=== PATIENT | female | born 1980 | race American Indian/Alaskan Native ===

== ENCOUNTER 2017-09-03 14:05 | Emergency (ER) | payer OTHER ==
--- NOTE | 2017-09-03 20:48 | Emergency Department Report ---
ED Lower Extremity HPI - General Chief Complaint: Extremity Problem,Nontraumatic Stated Complaint: bilateral leg pain Time Seen by Provider: 09/03/17 20:12 Source: patient Mode of arrival: Ambulatory Limitations: No Limitations - History of Present Illness Initial Comments: This is a 37-year-old female nontoxic, well nourished in appearance, no acute signs of distress presents to the ED with c/o of chronic intermittent bilateral knee pains 7 months. Patient stated pain only occurrence during winter but has stated several times there is no pain. Patient currently in the ED denies any pain. Patient stated she does not or did not follow-up with a primary care doctor due to pain being intermittent and has subsided currently. Patient denies any trauma to the region. Denies any joint swelling, joint redness, fever, chills, nausea, vomiting, chest pain, short of breath, numbness or tingling. Denies any allergies or past medical history. Denies any recent travels, low chloride, recent hospital stays. Denies any calf pain or calf tenderness. MD Complaint: knee injury -: month(s) Injury: Knee: Right, Left Severity: mild Severity scale (0 -10): 8 Improves With: nothing Worsens With: nothing Associated Symptoms: ambulatory. denies: snap/pop sensation, swelling, numbness , tingling, unable to bear weight, able to partially bear weight - Related Data Previous Rx's Medication Instructions Recorded Last Taken Type Ibuprofen [Motrin] 600 mg PO Q8H PRN #30 tablet 09/03/17 Unknown Rx Allergies Allergy/AdvReac Type Severity Reaction Status Date / Time No Known Allergies Allergy Unverified 09/03/17 14:28 ED Review of Systems ROS: Stated complaint: bilateral leg pain Other details as noted in HPI Constitutional: denies: chills, fever Eyes: denies: eye pain, eye discharge, vision change ENT: denies: ear pain, throat pain Respiratory: denies: cough, shortness of breath, wheezing Cardiovascular: denies: chest pain, palpitations Endocrine: no symptoms reported Gastrointestinal: denies: abdominal pain, nausea, diarrhea Genitourinary: denies: urgency, dysuria, discharge Musculoskeletal: arthralgia. denies: back pain, joint swelling Skin: denies: rash, lesions Neurological: denies: headache, weakness, paresthesias Psychiatric: denies: anxiety, depression Hematological/Lymphatic: denies: easy bleeding, easy bruising ED Past Medical Hx - Social History Smoking Status: Current Every Day Smoker Substance Use Type: Alcohol - Medications Home Medications: Home Medications Medication Instructions Recorded Confirmed Last Taken Type Ibuprofen [Motrin] 600 mg PO Q8H PRN #30 tablet 09/03/17 Unknown Rx ED Physical Exam - General Limitations: No Limitations General appearance: alert, in no apparent distress - Head Head exam: Present: atraumatic, normocephalic - Eye Eye exam: Present: normal appearance - ENT ENT exam: Present: normal exam, normal orophraynx, mucous membranes moist, TM's normal bilaterally, normal external ear exam - Neck Neck exam: Present: normal inspection, full ROM. Absent: tenderness, meningismus, lymphadenopathy, thyromegaly - Respiratory Respiratory exam: Present: normal lung sounds bilaterally. Absent: respiratory distress, wheezes, rales, rhonchi, stridor, chest wall tenderness, accessory muscle use, decreased breath sounds, prolonged expiratory - Cardiovascular Cardiovascular Exam: Present: regular rate, normal rhythm, normal heart sounds. Absent: irregular rhythm, systolic murmur, diastolic murmur, rubs, gallop - GI/Abdominal GI/Abdominal exam: Present: soft, normal bowel sounds. Absent: distended, tenderness, guarding, rebound, rigid, diminished bowel sounds - Extremities Exam Extremities exam: Present: normal inspection, full ROM, normal capillary refill. Absent: tenderness, pedal edema, joint swelling, calf tenderness - Expanded Lower Extremity Exam Left Hip exam: Present: normal inspection (bilateral exam), full ROM, external rotation, internal rotation, pelvic stability. Absent: tenderness, swelling, abrasion, laceration, ecchymosis, deformity, crepidus, dislocation, erythema, shortening Upper Leg exam: Present: normal inspection (bilateral exam), full ROM. Absent: tenderness, swelling, abrasion, laceration, ecchymosis, deformity, crepidus, dislocation, erythema Knee exam: Present: normal inspection (bilateral exam), full ROM, full knee extension. Absent: tenderness, swelling, abrasion, laceration, ecchymosis, deformity, crepidus, dislocation, erythema, effusion, pain w/ pronation/ supination, posterior draw sign, pain/laxity with valgus, pain/laxity with varus Lower Leg exam: Present: normal inspection (bilateral exam), full ROM. Absent: tenderness, swelling, abrasion, laceration, ecchymosis, deformity, crepidus, dislocation, erythema, palpable cord, Lisa's sign Ankle exam: Present: normal inspection (bilateral exam), full ROM. Absent: tenderness, swelling, abrasion, laceration, ecchymosis, deformity, crepidus, dislocation, erythema, anterior draw sign Foot/Toe exam: Present: normal inspection (bilateral exam), full ROM. Absent: tenderness, swelling, abrasion, laceration, ecchymosis, deformity, crepidus, dislocation, erythema, amputation, puncture wound, foreign body, calcaneal tenderness, tenderness at base of 5th metatarsal, nail avulsion, subungual hematoma Neuro vascular tendon exam: Present: no vascular compromise (bilateral exam). Absent: pulse deficit, abnormal cap refill, motor deficit, sensory deficit, tendon deficit, extremity cold to touch, pallor, abnormal 2-point discrimination , decreased fine/light touch, foot drop, peroneal nerve deficit, significant pain with passive ROM of distal joint Gait: Positive: observed and normal - Back Exam Back exam: Present: normal inspection - Neurological Exam Neurological exam: Present: alert, oriented X3, CN II-XII intact, normal gait, reflexes normal - Psychiatric Psychiatric exam: Present: normal affect, normal mood - Skin Skin exam: Present: warm, dry, intact, normal color. Absent: rash ED Course Vital Signs 09/03/17 14:28 Temperature 98.4 F Pulse Rate 94 H Respiratory 16 Rate Blood Pressure 127/75 O2 Sat by Pulse 99 Oximetry - Reevaluation(s) Reevaluation #1: 09/03/17 20:46 Patient is speaking in full sentences with no signs of distress noted. ED Lower Extremity MDM - Medical Decision Making This is a 37-year-old female that presents with bilatearl knee pain. Patient is stable and was examined immediately. Currently the patient denies any pain. There is no signs or swelling, cellulitis noted. No joint redness or joint swelling. Not warm to touch. No calf pain or tenderness. Negative jefferson test. Patient was instructed Follow-up with a primary care doctor in 3-5 days or if symptoms worsen and continue return to emergency room as soon as possible. At time time of discharge, the patient does not seem toxic or ill in appearance. No acute signs of distress noted. Patient agrees to discharge treatment plan of care. No further questions noted by the patient. Critical care attestation.: If time is entered above; I have spent that time in minutes in the direct care of this critically ill patient, excluding procedure time. ED Disposition Clinical Impression: Bilateral knee pain Qualifiers: Chronicity: chronic Qualified Code(s): M25.561 - Pain in right knee; M25.562 - Pain in left knee; M25.562 - Pain in left knee; G89.29 - Other chronic pain; G89.29 - Other chronic pain Disposition: TO HOME OR SELFCARE Is pt being admited?: No Does the pt Need Aspirin: No Condition: Stable Instructions: Knee Pain (ED), Ibuprofen (By mouth) Additional Instructions: Follow-up with a primary care doctor in 3-5 days or if symptoms worsen and continue return to emergency room as soon as possible. Prescriptions: Ibuprofen [Motrin] 600 mg PO Q8H PRN #30 tablet PRN Reason: Pain Referrals: PRIMARY CARE, [Primary Care Provider] - 3-5 Days ANDREA HATFIELD MD [Staff Physician] - 3-5 Days MICKEY PINZON MD [Staff Physician] - 3-5 Days [facility] [Outside] - 3-5 Days [facility] [Outside] - 3-5 Days Forms: Work/School Release Form(ED)
[2017-09-04 05:37] VITALS: BP 129/78
== END 2017-09-03 21:09 | disposition home or self-care (01) ==
LOC: ED 14:05
DX: M25.561 Pain in right knee (principal); M25.562 Pain in left knee; F17.200 Nicotine dependence, unspecified, uncomplicated
CPT/HCPCS: 99282

== ENCOUNTER 2019-02-21 22:33 | Emergency (ER) | payer OTHER ==
[2019-02-21] MEDS ORDERED: TORADOL IM ONE (23:17)
--- NOTE | 2019-02-22 00:25 | Cat Scan Report ---
PROCEDURE: CT ABDOMEN PELVIS WO CON TECHNIQUE: Computerized axial tomography of the abdomen and pelvis was performed without intravenous contrast. This study is performed without intravascular contrast material and its sensitivity for ab dominal and pelvic pathology, including neoplasms, inflammation, abscess, free fluid, thrombosis, art erial dissection and infarction, is reduced compared with a contrast enhanced study. HISTORY: pain in back and flank COMPARISONS: None . FINDINGS: Lower Lung conway: No focal abnormalities seen. Upper Abdomen: The unenhanced images of the liver, gallbladder, the adrenal glands, the pancreas and spleen are unremarkable. Kidneys, Ureters and Urinary bladder: There are several small nonobstructing calculi in the lower tw o thirds of the right kidney measuring up to 3 mm. There is a nonobstructing calculus measuring appro ximately 3 mm in the midportion of the left kidney. There is also a nonobstructing 2 mm calculus in t he lower third of the left kidney. No hydronephrosis visualized in the left. No ureteral calculi are seen on the left. The right renal collecting system appears minimally distended. The proximal right u reter also appears to be minimally distended although no definite ureteral calculi are seen. I cannot exclude a recently passed stone. Urinary bladder is suboptimally visualized as it is only partially filled otherwise is unremarkable. Retroperitoneum: Abdominal aorta appears normal. Nonspecific subcentimeter lymph nodes are seen in the retroperitoneum. No pathologically enlarged ly mph nodes are identified. Bowel: Mild diverticulosis visualized left side of the colon without evidence of diverticulitis. The re is no evidence of bowel obstruction. There is no ascites or free intraperitoneal gas. Normal-appea ring appendix appears to be visualized in the right lower quadrant. Minimal umbilical hernia containi ng adipose tissue is visualized. No herniated loops of bowel are seen. Reproductive organs: Uterus and adnexa are unremarkable. A small amount of nonspecific free fluid ap pears to be visualized in the cul-de-sac. Other: No acute bone abnormalities are identified. IMPRESSION: Several small nonobstructing renal calculi visualized bilaterally. There is minimal dilatation of the right renal collecting system as described. I cannot exclude a recently passed stone. No definite ur eteral calculi are seen on the right or left. Mild colonic diverticulosis without evidence of diverticulitis. Small amount of nonspecific free fluid is seen in the cul-de-sac. Uterus and adnexa otherwise are unr emarkable. This document is electronically signed by Josse Haro MD., February 22 2019 12:23:37 AM ET
[2019-02-22 01:09] LABS: Amorphous Crystals,Urine Few; Bacteria,Urine 4+ /HPF (Negative); Bilirubin,Urine NEG (Negative); Blood,Urine LG (Negative); Color,Urine Yellow (Yellow); Urobilinogen,Urine < 2.0 mg/dL (<2.0)
[2019-02-22 01:35] LABS: Mucus,Urine 1+ /HPF; WBC,Urine > 182.0 /HPF (0.0-6.0)
--- NOTE | 2019-02-22 02:43 | Emergency Department Report ---
ED Abdominal Pain HPI - General Chief Complaint: Abdominal Pain Stated Complaint: BACK FLANK PAIN Source: patient Mode of arrival: Ambulatory Limitations: No Limitations - History of Present Illness Initial Comments: This is a 38-year-old -[place] female who presents to the emergency room with right flank pain for 2 days. Past medical history of asthma, COPD, anxiety, kidney stones, and frequent urinary tract infections. Patient also reports dysuria and urinary frequency. She denies nausea, vomiting, diarrhea, pelvic pain, and vaginal discharge. MD Complaint: flank pain (right) Onset/Timin -: days(s) Location: R flank Radiation: none Migration to: no migration Severity: mild Severity scale (0 -10): 3 Quality: sharp, burning Consistency: intermittent Improves With: medication Worsens With: nothing Associated Symptoms: dysuria. denies: nausea, vomiting, diarrhea, fever, chills, constipation, hematemesis, hematochezia, melena, hematuria, anorexia, syncope Treatments Prior to Arrival: NSAIDs - Related Data Home Medications Medication Instructions Recorded Confirmed Last Taken guaiFENesin DM [Robitussin Dm] 10 ml PO Q6HR 08/30/18 08/30/18 Unknown Previous Rx's Medication Instructions Recorded Last Taken Type Aspirin EC 81 mg PO QDAY #30 tablet. 09/04/18 Unknown Rx Montelukast [Singulair] 10 mg PO QPM #30 tablet 09/04/18 Unknown Rx ALBUTEROL Inhaler(NF) [VENTOLIN 1 puff IH QID PRN #1 inha 10/29/18 Unknown Rx Inhaler(NF)] ALBUTEROL NEB's [Proventil 0.083% 2.5 mg IH TID PRN #90 neb 10/29/18 Unknown Rx NEBS] Acetaminophen [Acetaminophen TAB] 650 mg PO Q4H PRN #30 tablet 10/29/18 Unknown Rx Budesonide/Formoterol Fumarate 10.2 gm IH DAILY #1 hfa.aer.ad 10/29/18 Unknown Rx [Symbicort 160-4.5 Mcg Inhaler] Cefuroxime Axetil [Ceftin] 500 mg PO Q12H 5 Days ml 10/29/18 Unknown Rx HYDROcodone/APAP 5-325 [[place] 1 each PO Q4H PRN #12 tablet 10/29/18 Unknown Rx 5-325 mg TAB] Lisinopril [Prinivil] 10 mg PO DAILY #30 tablet 10/29/18 Unknown Rx Metoprolol [Lopressor TAB] 50 mg PO BID #60 tablet 10/29/18 Unknown Rx Pravastatin [Pravachol] 20 mg PO QHS #30 tablet 10/29/18 Unknown Rx Tiotropium [place] [Spiriva] 18 mcg IH MAYTE #30 cap.w.dev 10/29/18 Unknown Rx methylPREDNISolone [Medrol Dose 1 dose PO DAILY #1 pack 10/29/18 Unknown Rx Jose C] Nitrofurantoin Ciales/M-Cryst 100 mg PO Q12HR #10 capsule 02/22/19 Unknown Rx [Macrobid CAP] Phenazopyridine [Pyridium] 200 mg PO TID #6 tab 02/22/19 Unknown Rx Allergies Allergy/AdvReac Type Severity Reaction Status Date / Time adhesive Allergy Itching Verified 08/30/18 09:34 Latex, Natural Rubber Allergy Itching Verified 10/29/18 12:38 ED Review of Systems ROS: Stated complaint: BACK FLANK PAIN Other details as noted in HPI Constitutional: denies: chills, fever Respiratory: denies: cough, shortness of breath, wheezing Cardiovascular: denies: chest pain, palpitations Gastrointestinal: denies: abdominal pain, nausea, diarrhea Genitourinary: dysuria. denies: urgency, discharge Musculoskeletal: back pain (right flank). denies: joint swelling, arthralgia Skin: denies: rash, lesions Neurological: denies: headache, weakness, paresthesias Psychiatric: denies: anxiety, depression ED Past Medical Hx - Past Medical History Previous Medical History?: Yes Hx Congestive Heart Failure: No Hx Diabetes: No Hx Asthma: Yes (2012) Hx COPD: Yes (2017) Hx HIV: No Additional medical history: anxiety. h/o kidney stones, 2009 - Surgical History Past Surgical History?: No - Social History Smoking Status: Current Every Day Smoker Substance Use Type: Alcohol - Medications Home Medications: Home Medications Medication Instructions Recorded Confirmed Last Taken Type guaiFENesin DM [Robitussin Dm] 10 ml PO Q6HR 18 08/30/18 Unknown History Aspirin EC 81 mg PO QDAY #30 tablet. 09/04/18 Unknown Rx Montelukast [Singulair] 10 mg PO QPM #30 tablet 09/04/18 Unknown Rx ALBUTEROL Inhaler(NF) [VENTOLIN 1 puff IH QID PRN #1 inha 10/29/18 Unknown Rx Inhaler(NF)] ALBUTEROL NEB's [Proventil 0.083% 2.5 mg IH TID PRN #90 neb 10/29/18 Unknown Rx NEBS] Acetaminophen [Acetaminophen TAB] 650 mg PO Q4H PRN #30 tablet 10/29/18 Unknown Rx Budesonide/Formoterol Fumarate 10.2 gm IH DAILY #1 hfa.aer.ad 10/29/18 Unknown Rx [Symbicort 160-4.5 Mcg Inhaler] Cefuroxime Axetil [Ceftin] 500 mg PO Q12H 5 Days ml 10/29/18 Unknown Rx HYDROcodone/APAP 5-325 [[place] 1 each PO Q4H PRN #12 tablet 10/29/18 Unknown Rx 5-325 mg TAB] Lisinopril [Prinivil] 10 mg PO DAILY #30 tablet 10/29/18 Unknown Rx Metoprolol [Lopressor TAB] 50 mg PO BID #60 tablet 10/29/18 Unknown Rx Pravastatin [Pravachol] 20 mg PO QHS #30 tablet 10/29/18 Unknown Rx Tiotropium [place] [Spiriva] 18 mcg IH MAYTE #30 cap.w.dev 10/29/18 Unknown Rx methylPREDNISolone [Medrol Dose 1 dose PO DAILY #1 pack 10/29/18 Unknown Rx Jose C] Nitrofurantoin Ciales/M-Cryst 100 mg PO Q12HR #10 capsule 02/22/19 Unknown Rx [Macrobid CAP] Phenazopyridine [Pyridium] 200 mg PO TID #6 tab 02/22/19 Unknown Rx ED Physical Exam - General Limitations: No Limitations General appearance: alert, in no apparent distress - Respiratory Respiratory exam: Present: normal lung sounds bilaterally. Absent: respiratory distress - Cardiovascular Cardiovascular Exam: Present: regular rate, normal rhythm. Absent: systolic murmur, diastolic murmur, rubs, gallop - GI/Abdominal GI/Abdominal exam: Present: soft, normal bowel sounds. Absent: distended, tenderness, guarding, rebound, rigid - Back Exam Back exam: Present: full ROM, CVA tenderness (R). Absent: CVA tenderness (L), rash noted - Neurological Exam Neurological exam: Present: alert, oriented X3 - Psychiatric Psychiatric exam: Present: normal affect, normal mood - Skin Skin exam: Present: warm, dry, intact, normal color. Absent: rash ED Course Vital Signs 02/21/19 02/21/19 02/21/19 22:37 23:08 23:24 Temperature 98.6 F 98.6 F Pulse Rate 158 H 149 H Respiratory 18 20 18 Rate Blood Pressure 160/110 160/110 Blood Pressure [Right] O2 Sat by Pulse 100 100 Oximetry 02/21/19 02/22/19 23:54 03:00 Temperature Pulse Rate 85 Respiratory 18 18 Rate Blood Pressure Blood Pressure 109/70 [Right] O2 Sat by Pulse 100 Oximetry ED Medical Decision Making - Lab Data Lab Results 02/21/19 Range/Units Unknown Urine Color Yellow (Yellow) Urine Turbidity Cloudy (Clear) Urine pH 6.0 (5.0-7.0) Ur Specific [place] 1.006 (1.003-1.030) Urine Protein 100 mg/dl (Negative) mg/dL Urine Glucose (UA) Neg (Negative) mg/dL Urine Ketones Neg (Negative) mg/dL Urine Blood Lg (Negative) Urine Nitrite Pos (Negative) Urine Bilirubin Neg (Negative) Urine Urobilinogen < 2.0 (<2.0) mg/dL Ur Leukocyte Esterase Lg (Negative) Urine WBC (Auto) > 182.0 H (0.0-6.0) /HPF Urine RBC (Auto) 9.0 (0.0-6.0) /HPF U Epithel Cells (Auto) 8.0 (0-13.0) /HPF Urine Bacteria (Auto) 4+ (Negative) /HPF Amorphous Crystals Few Urine Mucus 1+ /HPF - Medical Decision Making Patient was examined by me. Patient is in no acute distress. Obtained a urinalysis which was positive for acute cystitis. Patient also have CVA tenderness on the right. Start Macrobid and Pyridium for acute cystitis. Patient informed of results. Patient instructed to increase fluid intake. Take [id number] Tylenol or ibuprofen for pain. Plan discussed with patient to discharge home and treat outpatient. She agreed with the ER plan. Patient discharged home in stable condition. Follow up with PCP in 2-3 days. Critical care attestation.: If time is entered above; I have spent that time in minutes in the direct care of this critically ill patient, excluding procedure time. ED Disposition Clinical Impression: Right flank pain, Dysuria Acute cystitis Qualifiers: Hematuria presence: with hematuria Qualified Code(s): N30.01 - Acute cystitis with hematuria Disposition: TO HOME OR SELFCARE Is pt being admited?: No Does the pt Need Aspirin: No Condition: Stable Instructions: Urinary Tract Infection in Women (ED), Abdominal Pain (ED) Additional Instructions: Increase fluid intake to 1L to 2L daily. Complete full course of antibiotics as prescribed. Avoid drinking alcohol while taking antibiotics and for 24 hours after completion. Follow up with primary care provider in 2-3 days. Prescriptions: Nitrofurantoin Ciales/M-Cryst [Macrobid CAP] 100 mg PO Q12HR #10 capsule Phenazopyridine [Pyridium] 200 mg PO TID #6 tab Referrals: JENNIFER REYES MD [Primary Care Provider] - 3-5 Days [facility] [Outside] - 3-5 Days [facility] [Outside] - 3-5 Days [facility] [Outside] - 3-5 Days Forms: Work/School Release Form(ED) Time of Disposition: 02:54
[2019-02-22] MEDS ORDERED: CATAPRES PO ONE (02:55)
[2019-02-22 03:06] VITALS: BP 106/70
== END 2019-02-22 03:10 | disposition home or self-care (01) ==
LOC: ED 22:33
DX: N30.01 Acute cystitis with hematuria (principal); J44.9 Chronic obstructive pulmonary disease, unspecified; F41.9 Anxiety disorder, unspecified; F17.200 Nicotine dependence, unspecified, uncomplicated; Z79.899 Other long term (current) drug therapy; Z91.040 Latex allergy status; Z91.09 Other allergy status, other than to drugs and biological substances
CPT/HCPCS: 74176; 81001; 96372; 99284; J1885

== ENCOUNTER 2019-05-26 22:09 | Emergency (ER) | payer OTHER ==
--- NOTE | 2019-05-26 22:42 | Emergency Department Report ---
Blank Doc - Documentation Documentation: 38-year-old female that presents with bartholin cyst. This initial assessment/diagnostic orders/clinical plan/treatment(s) is/are subject to change based on patient's health status, clinical progression and re- assessment by fellow clinical providers in the ED. Further treatment and workup at subsequent clinical providers discretion. Patient/guardians urged not to elope from the ED as their condition may be serious if not clinically assessed and managed. Initial orders include: 1- Patient sent to [facility] for further evaluation and treatment
[2019-05-27] MEDS ORDERED: BACTRIM DS PO ONE (00:14)
[2019-05-27] MEDS ORDERED: XYLOCAINE 1% MPF 5 mL INFILTRATI ONE (00:14)
[2019-05-27] MEDS ORDERED: PERCOCET 5/325 PO ONE (00:14)
[2019-05-27] MEDS ORDERED: IBUPROFEN PO ONE (00:14)
--- NOTE | 2019-05-27 02:23 | Emergency Department Report ---
- General Chief Complaint: Skin/Abscess/Foreign Body Stated Complaint: CYSY ABOUT TO BURST Time Seen by Provider: 05/26/19 22:42 Source: patient Mode of arrival: Ambulatory Limitations: No Limitations - History of Present Illness Initial Comments: Patient is a 38-year-old -Al[place]ian female who presents to the ED with complaint of acute onset persistent severe painful swollen erythematous maculopapular fluctuant a rash on the left labia majora on the inner surface for the last 2 days. Patient states that the pain or swelling of worse in the last 12 hours. Patient denies fever, chills, nausea, vomiting, dizziness, headache, chest pain, shortness of breath or dysuria and urinary frequency and urgency. -: Sudden, days(s) (2) Location: genitals (left labial majora) 1 - Painful swollen erythematous fluctuant rash Place: home Patient Tetanus UTD: Yes Context: fall, other (Spontaneous) Associated Symptoms: none, pain. denies: loss of feeling/numbness, suspect foreign body present, unable to move injured part, weakness followed by dizziness, nausea/vomiting, fever Treatments Prior to Arrival: NSAIDS - Related Data Home Medications Medication Instructions Recorded Confirmed Last Taken guaiFENesin DM [Robitussin Dm] 10 ml PO Q6HR 08/30/18 08/30/18 Unknown Previous Rx's Medication Instructions Recorded Last Taken Type Aspirin EC [Halfprin EC] 81 mg PO QDAY #30 tablet. 09/04/18 Unknown Rx Montelukast [Singulair] 10 mg PO QPM #30 tablet 09/04/18 Unknown Rx ALBUTEROL Inhaler(NF) [VENTOLIN 1 puff IH QID PRN #1 inha 10/29/18 Unknown Rx Inhaler(NF)] ALBUTEROL NEB's [Proventil 0.083% 2.5 mg IH TID PRN #90 neb 10/29/18 Unknown Rx NEBS] Acetaminophen [Acetaminophen TAB] 650 mg PO Q4H PRN #30 tablet 10/29/18 Unknown Rx Budesonide/Formoterol Fumarate 10.2 gm IH DAILY #1 hfa.aer.ad 10/29/18 Unknown Rx [Symbicort 160-4.5 Mcg Inhaler] Cefuroxime Axetil [Ceftin] 500 mg PO Q12H 5 Days ml 10/29/18 Unknown Rx HYDROcodone/APAP 5-325 [[place] 1 each PO Q4H PRN #12 tablet 10/29/18 Unknown Rx 5-325 mg TAB] Lisinopril [Prinivil] 10 mg PO DAILY #30 tablet 10/29/18 Unknown Rx Metoprolol [Lopressor TAB] 50 mg PO BID #60 tablet 10/29/18 Unknown Rx Pravastatin [Pravachol] 20 mg PO QHS #30 tablet 10/29/18 Unknown Rx Tiotropium [place] [Spiriva] 18 mcg IH MAYTE #30 cap.w.dev 10/29/18 Unknown Rx methylPREDNISolone [Medrol Dose 1 dose PO DAILY #1 pack 10/29/18 Unknown Rx Jose C] Nitrofurantoin Pepin/M-Cryst 100 mg PO Q12HR #10 capsule 02/22/19 Unknown Rx [Macrobid CAP] Phenazopyridine [Pyridium] 200 mg PO TID #6 tab 02/22/19 Unknown Rx Acetaminophen/Codeine [Tylenol 1 tab PO Q6H PRN #12 tab 05/27/19 Unknown Rx /Codeine # 3 tab] Clindamycin [Clindamycin CAP] 300 mg PO Q8HR #60 capsule 05/27/19 Unknown Rx Ibuprofen [Motrin] 600 mg PO Q8H PRN #20 tablet 05/27/19 Unknown Rx Sulfamethoxazole/Trimethoprim 1 each PO Q12H #20 tablet 05/27/19 Unknown Rx [Bactrim DS TAB] Allergies Allergy/AdvReac Type Severity Reaction Status Date / Time adhesive Allergy Itching Verified 08/30/18 09:34 Latex, Natural Rubber Allergy Itching Verified 10/29/18 12:38 ED Review of Systems ROS: Stated complaint: CYSY ABOUT TO BURST Other details as noted in HPI Constitutional: denies: chills, fever Eyes: denies: eye pain, eye discharge, vision change ENT: denies: ear pain, throat pain Respiratory: denies: cough, shortness of breath, wheezing Cardiovascular: denies: chest pain, palpitations Endocrine: no symptoms reported Gastrointestinal: denies: abdominal pain, nausea, diarrhea Genitourinary: denies: urgency, dysuria, discharge Musculoskeletal: denies: back pain, joint swelling, arthralgia Skin: rash (swollen erythematous fluctuant painful rash on left labia majora), change in color. denies: lesions Neurological: denies: headache, weakness, paresthesias Psychiatric: denies: anxiety, depression Hematological/Lymphatic: denies: easy bleeding, easy bruising ED Past Medical Hx - Past Medical History Previous Medical History?: Yes Hx Hypertension: Yes Hx Congestive Heart Failure: No Hx Diabetes: No Hx Asthma: Yes (2012) Hx COPD: Yes (2018) Hx HIV: No Additional medical history: anxiety, SVT. h/o kidney stones, 2009 - Surgical History Past Surgical History?: Yes - Social History Smoking Status: Current Every Day Smoker Substance Use Type: None - Medications Home Medications: Home Medications Medication Instructions Recorded Confirmed Last Taken Type guaiFENesin DM [Robitussin Dm] 10 ml PO Q6HR 08/30/18 08/30/18 Unknown History Aspirin EC [Halfprin EC] 81 mg PO QDAY #30 tablet. 09/04/18 Unknown Rx Montelukast [Singulair] 10 mg PO QPM #30 tablet 09/04/18 Unknown Rx ALBUTEROL Inhaler(NF) [VENTOLIN 1 puff IH QID PRN #1 inha 10/29/18 Unknown Rx Inhaler(NF)] ALBUTEROL NEB's [Proventil 0.083% 2.5 mg IH TID PRN #90 neb 10/29/18 Unknown Rx NEBS] Acetaminophen [Acetaminophen TAB] 650 mg PO Q4H PRN #30 tablet 10/29/18 Unknown Rx Budesonide/Formoterol Fumarate 10.2 gm IH DAILY #1 hfa.aer.ad 10/29/18 Unknown Rx [Symbicort 160-4.5 Mcg Inhaler] Cefuroxime Axetil [Ceftin] 500 mg PO Q12H 5 Days ml 10/29/18 Unknown Rx HYDROcodone/APAP 5-325 [[place] 1 each PO Q4H PRN #12 tablet 10/29/18 Unknown Rx 5-325 mg TAB] Lisinopril [Prinivil] 10 mg PO DAILY #30 tablet 10/29/18 Unknown Rx Metoprolol [Lopressor TAB] 50 mg PO BID #60 tablet 10/29/18 Unknown Rx Pravastatin [Pravachol] 20 mg PO QHS #30 tablet 10/29/18 Unknown Rx Tiotropium [place] [Spiriva] 18 mcg IH MAYTE #30 cap.w.dev 10/29/18 Unknown Rx methylPREDNISolone [Medrol Dose 1 dose PO DAILY #1 pack 10/29/18 Unknown Rx Jose C] Nitrofurantoin Pepin/M-Cryst 100 mg PO Q12HR #10 capsule 02/22/19 Unknown Rx [Macrobid CAP] Phenazopyridine [Pyridium] 200 mg PO TID #6 tab 02/22/19 Unknown Rx Acetaminophen/Codeine [Tylenol 1 tab PO Q6H PRN #12 tab 05/27/19 Unknown Rx /Codeine # 3 tab] Clindamycin [Clindamycin CAP] 300 mg PO Q8HR #60 capsule 05/27/19 Unknown Rx Ibuprofen [Motrin] 600 mg PO Q8H PRN #20 tablet 05/27/19 Unknown Rx Sulfamethoxazole/Trimethoprim 1 each PO Q12H #20 tablet 05/27/19 Unknown Rx [Bactrim DS TAB] ED Physical Exam - General Limitations: No Limitations General appearance: alert, in no apparent distress - Head Head exam: Present: atraumatic, normocephalic, normal inspection - Eye Eye exam: Present: normal appearance, PERRL, EOMI Pupils: Present: normal accommodation - ENT ENT exam: Present: normal exam, normal orophraynx, mucous membranes moist, TM's normal bilaterally, normal external ear exam - Neck Neck exam: Present: normal inspection, full ROM - Respiratory Respiratory exam: Present: normal lung sounds bilaterally. Absent: respiratory distress, wheezes, rales, rhonchi, chest wall tenderness, accessory muscle use - Cardiovascular Cardiovascular Exam: Present: regular rate, normal rhythm, normal heart sounds. Absent: systolic murmur, diastolic murmur, rubs, gallop - GI/Abdominal GI/Abdominal exam: Present: soft, normal bowel sounds. Absent: tenderness, guarding, rebound, hypoactive bowel sounds, organomegaly - External exam: Present: normal external exam, erythema, swelling, other (Swollen severely tender erythematous fluctuant rash on the inner left labium majora) Speculum exam: Present: other (deferred) Bi-manual exam: Present: other (deferred) - Extremities Exam Extremities exam: Present: normal inspection, full ROM, normal capillary refill - Back Exam Back exam: Present: normal inspection, full ROM. Absent: CVA tenderness (L), muscle spasm, paraspinal tenderness - Neurological Exam Neurological exam: Present: alert, oriented X3, CN II-XII intact, normal gait, motor sensory deficit - Psychiatric Psychiatric exam: Present: normal affect, normal mood, anxious - Skin Skin exam: Present: warm, dry, intact, normal color, rash (erythematous swollen severely tender fluctuant rash on lefrt lamium majora), erythema ED Course Vital Signs 05/26/19 22:43 Temperature 98.3 F Pulse Rate 100 H Respiratory 16 Rate Blood Pressure 142/91 O2 Sat by Pulse 98 Oximetry - Reevaluation(s) Reevaluation #1: 05/27/19 02:30 This is a 38-year-old female who presented to the ED with left labium majora swollen rash with pain for 2 days. In the ED, patient is alert and oriented 3 and is not in distress with normal vital signs but appears to be in pain. Patient was treated for pain in the ED and also given initial oral antibiotic in the ED. The patient's fluctuant rash was cleaned thoroughly and anesthetized with lidocaine 1% solution and incised and drained per protocol. The wound was then dressed appropriately and patient discharged home on pain medications and antibiotics. Patient was advised to follow-up with her primary care physician in 5-7 days for reevaluation or return to the ED immediately if symptoms get worse. - I & D Left Vagina Type of Procedure: Simple Site: Left labium majora Blade Size: 11 I & D Procedure: betadine prep, sterile drapes applied, sterile dressing applied Progress: Patient tolerated procedure well. Patient was discharged home on pain medications and oral antibiotics and advised to follow-up with her primary care physician is 5-7 days for reevaluation. Patient was also advised to return to the ED immediately if the pain or swelling or other symptoms get worse. ED Medical Decision Making - Medical Decision Making This is a 38-year-old female who presented to the ED with left labium majora swollen rash with pain for 2 days. In the ED, patient is alert and oriented 3 and is not in distress with normal vital signs but appears to be in pain. Patient was treated for pain in the ED and also given initial oral antibiotic in the ED. The patient's fluctuant rash was cleaned thoroughly and anesthetized with lidocaine 1% solution and incised and drained per protocol. The wound was then dressed appropriately and patient discharged home on pain medications and antibiotics. Patient was advised to follow-up with her primary care physician in 5-7 days for reevaluation or return to the ED immediately if symptoms get worse. - Differential Diagnosis cellulitis; Folliculitis; abscess of left lamium majora Critical care attestation.: If time is entered above; I have spent that time in minutes in the direct care of this critically ill patient, excluding procedure time. ED Disposition Clinical Impression: Abscess of left genital labia, Cellulitis of labia majora, Acute folliculitis Disposition: TO HOME OR SELFCARE Is pt being admited?: No Does the pt Need Aspirin: No Condition: Stable Instructions: Cellulitis (ED), Abscess (ED) Additional Instructions: Take medications with food, drink plenty of fluids and follow up with your Primary care Physician in 5-7 days for reevaluation. Return to the ED immediately if symptoms get worse. Prescriptions: Sulfamethoxazole/Trimethoprim [Bactrim DS TAB] 1 each PO Q12H #20 tablet Clindamycin [Clindamycin CAP] 300 mg PO Q8HR #60 capsule Ibuprofen [Motrin] 600 mg PO Q8H PRN #20 tablet PRN Reason: Pain Acetaminophen/Codeine [Tylenol /Codeine # 3 tab] 1 tab PO Q6H PRN #12 tab PRN Reason: Pain , Severe (7-10) Referrals: PRIMARY CARE, [Primary Care Provider] - 3-5 Days Forms: Work/School Release Form(ED) Time of Disposition: 02:20 Print Language: MALTESE
[2019-05-27 02:42] VITALS: BP 128/80
== END 2019-05-27 02:45 | disposition home or self-care (01) ==
LOC: ED 22:09
DX: N76.4 Abscess of vulva (principal); N76.2 Acute vulvitis; L73.9 Follicular disorder, unspecified; I10 Essential (primary) hypertension; J44.9 Chronic obstructive pulmonary disease, unspecified; F41.9 Anxiety disorder, unspecified; F17.200 Nicotine dependence, unspecified, uncomplicated; Z87.442 Personal history of urinary calculi; Z79.82 Long term (current) use of aspirin; Z79.899 Other long term (current) drug therapy

== ENCOUNTER 2019-05-29 17:40 | Emergency (ER) | payer OTHER ==
[2019-05-29 17:47] VITALS: BP 125/82
--- NOTE | 2019-05-29 17:47 | Event Note ---
ED Screening Note Date of service: 05/29/19 Time: 17:43 ED Screening Note: This is a 38 y.o. F. that presents to the ER for packing removal from I&D wound to left labia. This initial assessment/diagnostic orders/clinical plan/treatment(s) is/are subject to change based on patients health status, clinical progression and re- assessment by fellow clinical providers in the ED. Further treatment and workup at subsequent clinical providers discretion. Patient/guardian urged not to elope from the ED as their condition may be serious if not clinically assessed and managed. Initial orders include:
--- NOTE | 2019-05-29 18:50 | Emergency Department Report ---
Chief Complaint: Laceration/Recheck/Suture Stated Complaint: FOLLOW UP Time Seen by Provider: 05/29/19 17:43 - Exam Vital Signs: Vital Signs 05/29/19 17:43 Temperature 98.3 F Pulse Rate 109 H Respiratory 18 Rate Blood Pressure 125/82 O2 Sat by Pulse 99 Oximetry MSE screening note: Focused history and physical exam performed. Due to findings the following was ordered: ED Disposition for MSE Condition: Stable
--- NOTE | 2019-05-29 20:03 | Emergency Department Report ---
Suture/Staple Removal - HPI Chief Complaint: Laceration/Recheck/Suture Stated Complaint: FOLLOW UP Time Seen by Provider: 05/29/19 17:43 When Sutures or Katerine Placed: 3 days ago Wound Location: left mons pubis ED Review of Systems ROS: Stated complaint: FOLLOW UP Other details as noted in HPI Comment: All other systems reviewed and negative ED Past Medical Hx - Past Medical History Hx Hypertension: Yes Hx Congestive Heart Failure: No Hx Diabetes: No Hx Asthma: Yes (2012) Hx COPD: Yes (2017) Hx HIV: No Additional medical history: anxiety, SVT. h/o kidney stones, 2009 - Surgical History Past Surgical History?: No Additional Surgical History: X2. LUNG SURGERY - Social History Smoking Status: Current Every Day Smoker Substance Use Type: Alcohol - Medications Home Medications: Home Medications Medication Instructions Recorded Confirmed Last Taken Type guaiFENesin DM [Robitussin Dm] 10 ml PO Q6HR 08/30/18 08/30/18 Unknown History Aspirin EC [Halfprin EC] 81 mg PO QDAY #30 tablet.dr 09/04/18 Unknown Rx Montelukast [Singulair] 10 mg PO QPM #30 tablet 09/04/18 Unknown Rx ALBUTEROL Inhaler(NF) [VENTOLIN 1 puff IH QID PRN #1 inha 10/29/18 Unknown Rx Inhaler(NF)] ALBUTEROL NEB's [Proventil 0.083% 2.5 mg IH TID PRN #90 neb 10/29/18 Unknown Rx NEBS] Acetaminophen [Acetaminophen TAB] 650 mg PO Q4H PRN #30 tablet 10/29/18 Unknown Rx Budesonide/Formoterol Fumarate 10.2 gm IH DAILY #1 hfa.aer.ad 10/29/18 Unknown Rx [Symbicort 160-4.5 Mcg Inhaler] Cefuroxime Axetil [Ceftin] 500 mg PO Q12H 5 Days ml 10/29/18 Unknown Rx HYDROcodone/APAP 5-325 [[place] 1 each PO Q4H PRN #12 tablet 10/29/18 Unknown Rx 5-325 mg TAB] Lisinopril [Prinivil] 10 mg PO DAILY #30 tablet 10/29/18 Unknown Rx Metoprolol [Lopressor TAB] 50 mg PO BID #60 tablet 10/29/18 Unknown Rx Pravastatin [Pravachol] 20 mg PO QHS #30 tablet 10/29/18 Unknown Rx Tiotropium [place] [Spiriva] 18 mcg IH MAYTE #30 cap.w.dev 10/29/18 Unknown Rx methylPREDNISolone [Medrol Dose 1 dose PO DAILY #1 pack 10/29/18 Unknown Rx Jose C] Nitrofurantoin [place]/M-Cryst 100 mg PO Q12HR #10 capsule 02/22/19 Unknown Rx [Macrobid CAP] Phenazopyridine [Pyridium] 200 mg PO TID #6 tab 02/22/19 Unknown Rx Acetaminophen/Codeine [Tylenol 1 tab PO Q6H PRN #12 tab 05/27/19 Unknown Rx /Codeine # 3 tab] Clindamycin [Clindamycin CAP] 300 mg PO Q8HR #60 capsule 05/27/19 Unknown Rx Ibuprofen [Motrin] 600 mg PO Q8H PRN #20 tablet 05/27/19 Unknown Rx Sulfamethoxazole/Trimethoprim 1 each PO Q12H #20 tablet 05/27/19 Unknown Rx [Bactrim DS TAB] Suture Removal Exam - Exam General: Vital signs noted. No distress. Alert and acting appropriately. Wound: Yes Tenderness, No Pathologic Erythema, No Drainage, No Pus, No Wound Dehiscence Other Systems: All other systems reviewed and are unremarkable. ED Course Vital Signs 05/29/19 17:43 Temperature 98.3 F Pulse Rate 109 H Respiratory 18 Rate Blood Pressure 125/82 O2 Sat by Pulse 99 Oximetry ED Recheck MDM - Medical Decision Making This is a 38-year-old female who presents for packing removal was placed 3 days ago. Patient states she is taking the medication as prescribed. Packing removed without any difficulty. Wound was flushed with 20 mL of normal saline. Vital signs are normal patient is in no acute distress. Discussed the patient to continue taking her medication as prescribed. Critical care attestation.: If time is entered above; I have spent that time in minutes in the direct care of this critically ill patient, excluding procedure time. ED Disposition Clinical Impression: Visit for wound check Disposition: [id number] TO HOME OR SELFCARE Is pt being admited?: No Does the pt Need Aspirin: No Condition: Stable Instructions: Acute Wound Care (ED) Additional Instructions: Make sure to follow up with the primary care physician as discussed. Take all your medications as you've been prescribed. If you have any worsening symptoms or develop new symptoms please return to ED immediately. Referrals: [facility] [Outside] - 3-5 Days [facility] [Outside] - 3-5 Days Forms: Work/School Release Form(ED) Time of Disposition: 19:59
== END 2019-05-29 20:37 | disposition home or self-care (01) ==
LOC: ED 17:40
DX: N76.4 Abscess of vulva (principal); I10 Essential (primary) hypertension; J44.9 Chronic obstructive pulmonary disease, unspecified; F41.9 Anxiety disorder, unspecified; F17.200 Nicotine dependence, unspecified, uncomplicated; Z87.442 Personal history of urinary calculi; Z98.890 Other specified postprocedural states; Z79.82 Long term (current) use of aspirin; Z79.899 Other long term (current) drug therapy; Z91.040 Latex allergy status; Z91.048 Other nonmedicinal substance allergy status